=== PATIENT | male | born 1985 | race Caucasian/White ===

== ENCOUNTER 2017-07-22 08:16 | Emergency (ER) | payer OTHER ==
[~2017-07-22] VITALS: Ht 185.4 cm; Wt 103.4 kg
[2017-07-22] MEDS ORDERED: CLEO150C PO (09:28)
[2017-07-22] MEDS ORDERED: DOXY100C37 PO (09:28)
[2017-07-22 09:36] VITALS: BP 136/83
== END 2017-07-22 09:38 | disposition home or self-care (01) ==
LOC: M ED 08:16
DX: J00 Acute nasopharyngitis [common cold] (principal)

== ENCOUNTER → 2022-09-16 | Outpatient (CLI) | payer OTHER ==
[~2022-09-16] MED LIST: CLEO150C PO; DOXY-443 PO
== END ==
LOC: M RAD 06:57
PROVIDERS: ATTEND General Practice
DX: M50.222 Other cervical disc displacement at C5-C6 level (principal); R20.1 Hypoesthesia of skin

== ENCOUNTER → 2022-12-18 | Outpatient (CLI) | payer OTHER | LOC: M RAD 06:46 | PROVIDERS: ATTEND Internal Medicine Gastroenterology | DX: R10.13 Epigastric pain (principal) | CPT/HCPCS: 78226; A9537 ==

== ENCOUNTER 2023-04-14 08:39 | Day surgery (SDC) | payer OTHER ==
[~2023-04-14] VITALS: Ht 182.9 cm; Wt 104.8 kg
[~2023-04-14 08:39] MED LIST changes: +ATOR40TA75; +LIDOCAINE 2% 100MG/5ML SDV (FOR ANES.) As Ordered ONE; +NS 1,000 ML IV ONE; +propofoL 200 MG/20 ML VIAL As Ordered ONE
[2023-04-14] MEDS ORDERED: fentaNYL 100 MCG/2 ML INJECTION As Ordered ONE (09:29)
[2023-04-14] MEDS ORDERED: propofoL 200 MG/20 ML VIAL As Ordered ONE (10:11)
[2023-04-14 10:55] VITALS: BP 141/83
== END 2023-04-14 10:58 | disposition home or self-care (01) ==
LOC: M OPP 08:39
PROVIDERS: ATTEND Internal Medicine Gastroenterology
DX: K52.9 Noninfective gastroenteritis and colitis, unspecified (principal); K21.00 Gastro-esophageal reflux disease with esophagitis, without bleeding; K76.0 Fatty (change of) liver, not elsewhere classified; G47.30 Sleep apnea, unspecified; Z88.0 Allergy status to penicillin; Z79.899 Other long term (current) drug therapy
CPT/HCPCS: 43239; 45380; 88305; J3010

== ENCOUNTER → 2025-03-16 | Outpatient (CLI) | payer OTHER ==
[~2025-03-16] MED LIST changes: +DOXY-441 PO; -DOXY-443 PO; +ISOVUE-300 61% 100ML VIAL As Ordered ONE; +LIDOCAINE 1% MDV 20ML VIAL As Ordered ONE; -LIDOCAINE 2% 100MG/5ML SDV (FOR ANES.) As Ordered ONE; -NS 1,000 ML IV ONE; +PROHANCE 279.3MG/ML 5ML VIAL As Ordered ONE; -propofoL 200 MG/20 ML VIAL As Ordered ONE
== END ==
LOC: M RAD 12:34
PROVIDERS: ATTEND Student in an Organized Health Care Education/Training Program
DX: M25.551 Pain in right hip (principal); S73.101A Unspecified sprain of right hip, initial encounter; X58.XXXA Exposure to other specified factors, initial encounter; Y92.9 Unspecified place or not applicable
CPT/HCPCS: 27093; 73723; 77002; A9576; Q9967